=== PATIENT | female | born 1970 | race Caucasian/White ===

== ENCOUNTER 2024-07-31 17:13 | Emergency (ER) | payer OTHER, SELFPAY ==
[2024-07-31 17:17] VITALS: BP 127/100
[2024-07-31 17:46] LABS: % Basophils 0.3 % (0-2); % Eosinophils 0.3 % (0-6); % Immature Granulocytes 0.2 % (0-0.5); % Lymphocytes 10.2 % (20.5-51.1); % Monocytes 6.3 % (1.7-9.3); % Neutrophils 82.7 % (42.2-75.2); Absolute Monocytes 0.6 10^3/uL (0.1-0.6); Absolute Neutrophils 8.1 10^3/uL (1.4-6.5); Hematocrit 37.9 % (37.0-47.0); Hemoglobin 13.2 g/dL (12.0-16.0); Mean Corp Hgb Conc. 34.8 g/dL (33.0-37.0); Mean Corpuscular Hgb 29.9 pg (27.0-31.0); Mean Corpuscular Volume 85.7 fL (81.0-99.0); Mean Platelet Volume 9.7 fL (7.4-10.4); Nucleated Red Blood Cells % 0 %; Platelet Count 200 10^3/uL (130-400); Red Blood Cell Count 4.42 10^6/uL (4.20-5.40); Red Cell Dist. Width 12.4 % (11.5-14.5); White Blood Cell Count 9.7 10^3/uL (4.8-10.8)
[2024-07-31 17:52] LABS: ALT (SGPT) 16 U/L (0-35); AST (SGOT) 22 U/L (14-36); Albumin 4.4 g/dl (3.5-5.0); Alkaline Phosphatase 41 U/L (38-126); Blood Urea Nitrogen 18 mg/dl (7-17); Calcium 9.7 mg/dl (8.4-10.2); Carbon Dioxide 30 mmol/L (22-30); Chloride 108 mmol/L (98-107); Glucose 97 mg/dl (70-99); Potassium 3.9 mmol/L (3.5-5.1); Sodium 145 mmol/L (135-145); Total Bilirubin 0.6 mg/dl (0.2-1.3); Total Protein 7.2 g/dl (6.3-8.2); eGFR > 60.00
[2024-07-31 18:05] LABS: Troponin I < 0.012 ng/ml
[2024-07-31 19:43] VITALS: BP 127/79
[2024-07-31 20:00] VITALS: BP 119/78
[2024-07-31 21:00] VITALS: BP 128/77
[2024-07-31 21:11] LABS: D-Dimer < 0.27 ug/mlFEU (0.00-0.50)
[2024-07-31 21:13] LABS: Troponin I < 0.012 ng/ml
--- NOTE | 2024-07-31 22:18 | ED.GENMED ---
History of Present Illness
General
Chief Complaint: Chest Pain
Source: patient
Exam Limitations: none
Time Seen by Provider: 07/31/24 20:12
Nursing documentation reviewed up to this point in time: agreed with
History of Present Illness
History of Present Illness:
Patient to ED with compaint of left shoulder pain. Reports it hurts to take a deep breath. SHe was seen by PCP yesterday, ekg completed. No abnormal findings. She was given RX for outpatient labs but today felt that the pain was worsening.
Denies any dhistory of trauma. Denies SOB, Cough. No n/v/diaphoresis. Brought to ED by spouse for eval.
Past History
Past History
ED Past Medical History: Psychiatric
ED Past Surgical History: Appendectomy
Social History
Tobacco: Smoker
Alcohol: Former (Patient has been in recovery from alcohol use disorder since 2010)
Personal:
Living: with family
Review of Systems
Review of Systems
Allergies reviewed?: Yes
All Other Systems: ROS reviewed and negative except as documented in HPI and ROS
Constitutional: Reports no symptoms
EENT: Reports no symptoms
Respiratory: Reports no symptoms
Cardiac: Reports chest pain (left shoulder, upper chest pain)
ABD/GI: Reports no symptoms
: Reports no symptoms
Musculoskeletal: Reports joint pain (Pain to lelft shoulder)
Skin: Reports no symptoms
Neurological: Reports no symptoms
Psychiatric: Reports no symptoms
Phy Exam
General Physical Exam
General Presentation: well appearing and no apparent distress
General age: appears stated age
General Skin: warm and dry
General Habitus: normal
General Mental: alert
Cardiovascular Exam
Cardiovascular Exam: regular rate/rhythm and no edema
Pulmonary Exam
Pulmonary Exam: lungs clear and no respiratory distress
Musculoskeletal Exam
Musculoskeletal Exam: full ROM and neuro vasc intact
Skin Exam
Skin Exam: normal color, warm/dry and no rash
Psychiatric Exam
Psychiatric Exam: normal mood/affect
Scores
Heart Score for Chest Pain Patients
STEMI patient?: No
History: Slightly or Non-Suspicious
ECG: Normal
Age: >45 - <65 years
Risk Factors: No Risk Factors
Troponin: </= Normal Limit
Heart Score for Chest Pain Patients: 1
Heart Score Risk: 2.5% MACE over next 6 weeks
Course
Orders/Labs/Results
Orders:
Orders
07/31/24 17:14
Electrocardiogram (*1) Urgent
Reason for Study: Chest Pain
Electrocardiogram (*1) Urgent
Reason for Study: Chest Pain
EKG- Treatment ONCE
07/31/24 17:29
Complete Blood Count/With Diff Urgent
Comprehensive Metabolic Panel Urgent
Troponin I Urgent
07/31/24 20:26
Electrocardiogram (*1) Urgent
Reason for Study: Chest Pain
EKG- Treatment ONCE
CR Chest - 2 Views Urgent
Comment:
Reason For Exam: left pain
07/31/24 20:39
D-Dimer Urgent
Troponin I Urgent
Abnormal Lab Results
07/31/24
17:29
Absolute Neuts (auto) 8.1 H 10^3/uL
(1.4-6.5)
Absolute Lymphs (auto) 1.0 L 10^3/uL
(1.2-3.4)
Neutrophils % 82.7 H %
(42.2-75.2)
Lymphocytes % 10.2 L %
(20.5-51.1)
Chloride 108 H mmol/L
(98-107)
BUN 18 H mg/dl
(7-17)
07/31/24 17:29
07/31/24 17:29
Vital Signs
Initial and Last Documented VS:
Initial Vital Signs
Temp Pulse Resp BP Pulse Ox
98.2 F 88 16 127/100 100
07/31/24 17:17 07/31/24 17:17 07/31/24 17:17 07/31/24 17:17 07/31/24 17:17
Last Documented Vital Signs
Temp Pulse Resp BP Pulse Ox
98.2 F 74 13 128/77 98
07/31/24 17:17 07/31/24 21:00 07/31/24 21:00 07/31/24 21:00 07/31/24 22:19
*Pulse Oximetry
SaO2: 98
Oxygen Mode of Delivery: Room air
Patient hypoxic: no
*Critical Care Note
Total Time (30-74mins, 75-104mins- exclusive of procedures): Not Applicable
Update Note
Update Note:
Patient to ED with complaint ofleft shoulder/upper chest pain. EKG NSR, troponin neg x 2, ddimer neg. CXR NAD. No concerning findings on CMP, CBC. Pain worse with movement of shoulder. SDoubtful for ACS. WIll discharge home, close follow up
with PCP. Given instructions on s/s to return to ED and she is agreeable to plan.
ED Attending Note
-
Portions of this chart may have been created with voice recognition software.� Occasional wrong word or��sound alike� substitutions may have occurred due to the inherent limitations of voice recognition software.
Discharge Plan
Departure
Patient Disposition: Home (Routine Discharge)
Date of Disposition: 07/31/24
Time of Disposition: 21:29
Patient with high blood pressure during this ER visit?: No
Condition: Good
Covid-19: Not Applicable
Discharge Problem:
Chest pain
Instructions: Chest Pain PCP Follow Up
Prescriptions:
No Action
Celexa:
40 mg PO QPM
cyclobenzaprine 10 MG tablet
10 mg PO TIDPRN PRN (Reason: back pain)
clonazepam 1 MG tablet
2 mg PO DAILY
dextroamphetamine-amphetamine [Adderall] 20 MG tablet
20 mg PO .QAFTERNOON
dextroamphetamine-amphetamine [Adderall XR] 30 MG capsule,extended release 24hr
30 mg PO DAILY
oxycodone 5 MG tablet
5 mg PO Q4HPRN PRN (Reason: pain)
Patient Comments:
takes 4-6 tmimes a day
[place] Tab
1 tab PO .QAFTERNOON
Patient Comments:
300 mg strength
[place] Tab
2 tab PO .QAM
Patient Comments:
300 mg strength
metronidazole 500 MG tablet
500 mg PO TID Qty: 21 0RF
ciprofloxacin HCl 500 MG tablet
500 mg PO BID Qty: 14 0RF
cephalexin 500 MG capsule
500 mg PO QID Qty: 40 0RF
Referrals:
Melissa Boyd MD [Family Provider, Family Practice] - Tomorrow
Activity Restrictions/Additional Instructions:
Return to the emergency department immediatley for any changes in/worsening of your symptoms.
Interventions
Interventions:
*Risk Screen - Suicide Last Done: 07/31/24 17:17
*General Assessment Last Done: 07/31/24 20:07
*Neglect/Abuse Screening Last Done: 07/31/24 17:17
*ED- Fall Risk Assessment Last Done: 07/31/24 20:07
*Nursing Disposition Last Done: 07/31/24 21:52
ED- Cardiac Assessment Last Done: 07/31/24 20:07
Discharge Date and Time
Discharge Date/Time: 07/31/24 21:52
Print Language: YAKUT
== END 2024-07-31 21:52 | disposition home or self-care (01) ==
LOC: EMR 17:13
PROVIDERS: Nurse Practitioner; EMERGENCY PHYSICIAN Emergency Medicine; FAMILY PHYSICIAN Student in an Organized Health Care Education/Training Program
DX: R07.89 Other chest pain (principal); F17.200 Nicotine dependence, unspecified, uncomplicated; I45.10 Unspecified right bundle-branch block; Z90.49 Acquired absence of other specified parts of digestive tract
CPT/HCPCS: 99283; 71046; 80053; 84484; 85025; 85379; 93005